=== PATIENT | female | born 1995 | race African-American/Black ===

== ENCOUNTER 2016-09-24 21:05 | Emergency (ER) | payer OTHER ==
[~2016-09-24] VITALS: Ht 160 cm; Wt 74.4 kg
--- NOTE | ~2016-09-24 | EKG ---
[place] [address] [facility] [place] [address] ELECTROCARDIOGRAM REPORT Name: JODEE ROMAN [facility] [id number] Admission: 09/24/16 Attend Phys: Discharge: 09/24/16 Date of : [birth year] Report #: [id number] THIS REPORT FOR: //name// [facility] ED Test Date: 2016-09-24 Test Time: 22:14:22 Pat Name: JODEE ROMAN Department: Room: Gender: F Television Camera Operator: [id number] : 1995 Requested By: Roger Ramirez Order Number: [id number] MD: Roddy Palacios Measurements Intervals [place] Rate: 110 P: 39 KS: 156 QRS: 18 QRSD: 67 T: -7 QT: 312 QTc: 423 Interpretive Statements Sinus tachycardia Borderline T abnormalities, inferior leads Compared to ECG 09/11/2016 21:23:46 No significant change was found Electronically Signed On 09-26-2016 13:21:05 CDT by Roddy Palacios [email or web address] <ELECTRONICALLY SIGNED> By: Roddy Palacios MD, [facility] 09/26/16 1321 2214 13 Roddy Palacios MD, [facility] /EPI
[~2016-09-24 21:05] MED LIST: IRON325 M1; PROAIR HFA8.5 GM INH
[2016-09-24 22:46] LABS: ABSOLUTE NEUTROPHILS 4.7 thou/uL (1.4-8.2); BASOPHILS 0.9 % (0.0-2.0); EOSINOPHILS 1.2 % (0.0-3.0); HEMATOCRIT 38.9 % (37.0-47.0); HEMOGLOBIN 12.8 gm/dL (12.0-15.0); LYMPHOCYTES 32.7 % (24.0-44.0); MCH 26.3 pg (26.0-34.0); MCHC 32.8 g/dL (28.0-37.0); MCV 80.3 fL (80.0-100.0); MONOCYTES 11.7 % (1.0-8.0); PLATELET COUNT 250 thou/uL (150-400); POLYS 53.5 % (36.0-66.0); RBC 4.85 mil/uL (4.20-5.00); RDW 16.6 % (10.5-14.5); WBC 8.8 thou/uL (4.0-11.0)
[2016-09-24 22:47] LABS: MANUAL DIFF NO
[2016-09-24 22:51] LABS: ANION GAP 11 mmol/L (7-16); BUN 8 mg/dL (7-18); CALCIUM 9.1 mg/dL (8.5-10.1); CHLORIDE 105 mmol/L (98-107); CO2 24 mmol/L (21-32); CREATININE 0.9 mg/dL (0.6-1.0); GLUCOSE 103 mg/dL (74-106); POTASSIUM 3.7 mmol/L (3.5-5.1); SODIUM 140 mmol/L (136-145)
[2016-09-24 22:57] LABS: APTT 26.8 Seconds (24.5-32.8); PROTIME 10.3 Seconds (9.3-11.4)
[2016-09-24 23:08] LABS: ALBUMIN 3.8 g/dL (3.4-5.0); ALKALINE PHOSPHATASE 107 U/L (46-116); CK-MB MASS < 0.5 ng/mL (<0.5-3.6); MAGNESIUM 1.9 mg/dL (1.8-2.4); NT-PRO BRAIN NAT PEPTIDE 20 pg/mL (<300); SGOT 19 U/L (15-37); SGPT 23 U/L (30-65); TOTAL BILIRUBIN 0.4 mg/dL (<0.1-1.0); TROPONIN-I < 0.04 ng/mL (<0.04-0.07)
[2016-09-24] MEDS ORDERED: PREDNISONE 20 M20 MG PO (23:47)
[2016-09-24] MEDS ORDERED: VENTOLIN HFA 1818 GM INH (23:47)
[2016-09-24 23:59] VITALS: BP 121/74
== END 2016-09-24 23:57 | disposition home or self-care (01) ==
LOC: ER 21:05
PROVIDERS: Emergency Medicine
DX: R06.00 Dyspnea, unspecified (principal); R00.0 Tachycardia, unspecified; Z87.891 Personal history of nicotine dependence

== ENCOUNTER 2016-11-16 18:15 | Emergency (ER) | payer OTHER ==
[~2016-11-16] VITALS: Ht 160 cm; Wt 72.1 kg
[~2016-11-16 18:15] MED LIST changes: +PREDNISONE 20 M20 MG PO; +VENTOLIN HFA 1818 GM INH
[2016-11-16 18:31] LABS: URINE BILIRUBIN NEGATIVE (Negative); URINE BLOOD TRACE (Negative); URINE COLOR YELLOW; URINE GLUCOSE-RANDOM* NEGATIVE (Negative); URINE KETONES NEGATIVE (Negative); URINE NITRITE NEGATIVE (Negative); URINE PROTEIN (DIPSTICK) NEGATIVE (Negative); URINE UROBILINOGEN 0.2 E.U./dl (0.2-1.0)
[2016-11-16 18:48] LABS: ABSOLUTE NEUTROPHILS 4.2 thou/uL (1.4-8.2); BASOPHILS 0.6 % (0.0-2.0); EOSINOPHILS 1.6 % (0.0-3.0); HEMATOCRIT 40.3 % (37.0-47.0); HEMOGLOBIN 13.2 gm/dL (12.0-15.0); LYMPHOCYTES 41.1 % (24.0-44.0); MCH 26.5 pg (26.0-34.0); MCHC 32.8 g/dL (28.0-37.0); MCV 80.9 fL (80.0-100.0); MONOCYTES 9.8 % (1.0-8.0); PLATELET COUNT 245 thou/uL (150-400); POLYS 46.9 % (36.0-66.0); RBC 4.98 mil/uL (4.20-5.00); WBC 8.9 thou/uL (4.0-11.0)
[2016-11-16 18:49] LABS: MANUAL DIFF NO
[2016-11-16 18:54] LABS: ANION GAP 12 mmol/L (7-16); BUN 11 mg/dL (7-18); CALCIUM 9.9 mg/dL (8.5-10.1); CHLORIDE 105 mmol/L (98-107); CO2 23 mmol/L (21-32); CREATININE 0.8 mg/dL (0.6-1.0); GLUCOSE 90 mg/dL (74-106); POTASSIUM 3.7 mmol/L (3.5-5.1); SODIUM 140 mmol/L (136-145)
[2016-11-16 19:00] LABS: ALKALINE PHOSPHATASE 107 U/L (46-116); DIRECT BILIRUBIN < 0.1 mg/dL (<0.1-0.3); SGOT 18 U/L (15-37); SGPT 23 U/L (30-65); TOTAL BILIRUBIN 0.4 mg/dL (<0.1-1.0); TOTAL PROTEIN 8.3 g/dL (6.4-8.2)
[2016-11-16 19:21] VITALS: BP 118/76
== END 2016-11-16 19:22 | disposition home or self-care (01) ==
LOC: ER 18:15
PROVIDERS: Nurse Practitioner
DX: R53.1 Weakness (principal); Z86.2 Personal history of diseases of the blood and blood-forming organs and certain disorders involving the immune mechanism; Z98.890 Other specified postprocedural states; Z87.891 Personal history of nicotine dependence